=== PATIENT | female | born 1965 | race Hispanic/Latino ===

== ENCOUNTER 2018-09-09 08:27 | Day surgery (SDC) | payer OTHER ==
[2018-09-09] VITALS (7 sets, daily range): BP systolic 93–126; BP diastolic 55–73
[~2018-09-09] VITALS: Ht 168.9 cm; Wt 66.2 kg
[~2018-09-09 08:27] MED LIST: CA C1TAB95 PO; CALC-866 PO; SODIUM CHLORIDE 0.9% 1000ML 1,000 ML IV ONE
[2018-09-09] MEDS ORDERED: PROPOFOL 10 MG/ML 20ML VIAL IV ONE (10:54)
== END 2018-09-09 11:45 | disposition home or self-care (01) ==
LOC: DAH 08:27 → ENDO 08:27
PROVIDERS: ATTEND Internal Medicine Gastroenterology
DX: C21.8 Malignant neoplasm of overlapping sites of rectum, anus and anal canal (principal); M85.89 Other specified disorders of bone density and structure, multiple sites; Z79.899 Other long term (current) drug therapy; Z90.710 Acquired absence of both cervix and uterus; Z88.8 Allergy status to other drugs, medicaments and biological substances
CPT/HCPCS: 45341; A4606; J2704; J7030